=== PATIENT | male | born 1950 | race Caucasian/White ===

== ENCOUNTER 2023-03-24 08:20 | Outpatient (AMB) | payer MEDICARE, OTHER, SELFPAY ==
[2023-03-24 08:31] VITALS: BP 114/70; PULSE 80; TEMP 36.4; O2SAT 96; BMI 26.9
--- NOTE | 2023-03-24 08:31 | MHC.OFFWIV ---
Intake Vital Signs 03/24/23 08:31 Height 6 ft Weight 198 lb 4 oz BMI 26.9 BP 114/70 Blood Pressure Location Lt brachial Position Sitting Pulse 80 Pulse Source Pulse Oximeter Temp 97.5 F Temp Source Oral Pulse Oximetry (%) 96 Oxygen Delivery Method Room Air Intake Visit Reasons: EP RT foot swollen masked in lobby Intake Note: Pt is here for RT ankle pain, started from his heel Patient Tobacco Use Status: Never used Tobacco Allergies penicillin V Allergy (Unknown, Verified 03/13/19 00:00) Do you need a note to return to daycare/school/sports/work: Yes HPI EP RT foot swollen masked in lobby HPI Details This is 72 year old male patient who presents today with a 2-3 day history of right ankle/heel pain and swelling. He sustained a R knee meniscus tear back in January, being followed a surgeon at [facility] for this. He is wearing a brace. 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 He tried a shoe insert and has been icing ankle. He denies any new injury to his foot or ankle. He has a f/u with [facility] on . Denies any calf pain. [facility] Social History Patient Tobacco Use Status: Never used Tobacco Physical Exam Vital Signs: Last Vital Signs Temp 97.5 F 03/24/23 08:31 Pulse 80 03/24/23 08:31 BP 114/70 03/24/23 08:31 Pulse Ox 92 03/24/23 08:31 Oxygen Delivery Method Room Air 03/24/23 08:31 BMI result Body Mass Index 26.9 Const General: cooperative, comfortable and no acute distress Resp Effort & Inspection: normal respiratory effort Cardio Palpation: normal PMI Rate: regular rate Rhythm: regular rhythm Skin General skin exam: no rashes or lesions noted Extrem Other: Right heel and right achilles tender slightly warm to palp. Calf soft and nontender. Normal cap refill. Mild pedal edema. PT/DP pulses intact. Full ankle ROM, though pain in achilles with dorsiflexion. Psych Appearance: grossly normal Mental Status: mental status grossly normal Speech and movement: Normal speech and movement present Assessment & Plan Assessment & Plan (1) Achilles tendinitis of right lower extremity: Code(s): M76.61 - Achilles tendinitis, right leg Plan: I suspect this is an achilles tendinitis. Gout less likely. 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 I wrapped ankle today and advised he continue to ice/elevate. Work note provided. I am going to start him on a short course of Prednisone. We reviewed indications, use, possible s/e of this. He will hold Diclofenac while on this. He has a f/u with [facility] this where he can have further evaluation if symptoms persist at that time. He verbalizes understanding and agrees to plan. Medications: New prednisone Take twice a day for 3 days. Do not take Diclofenac with this medication. 20 mg PO BID 6 tabs 0RF 3 days Coding Level of Care Code Est Pt Level 3 (71027) Diagnoses Achilles tendinitis of right lower extremity M76.61
== END 2023-03-24 09:21 | disposition home or self-care (01) ==
PROVIDERS: PCP Family Medicine; Visit Provider Nurse Practitioner Family
DX: M76.61 Achilles tendinitis, right leg (principal)
CPT/HCPCS: 99213